=== PATIENT | male | born 1965 | race African-American/Black ===

== ENCOUNTER 2018-03-10 07:18 | Day surgery (SDC) | payer OTHER ==
[2018-03-07 11:03] VITALS: BMI 29.9
[2018-03-10 07:37] VITALS: TEMP 97.8
[2018-03-10] MEDS ORDERED: PROPOFOL 20 ML ONE ×2 (08:29)
[2018-03-10 09:46] VITALS: BP 120/68; PULSE 62
--- NOTE | 2018-03-16 16:12 | PATH ---
Surgical Pathology Report Patient Name: ANTONIO SANCHEZ [facility]. Rec. #: [id number] /Age/Gender: 1965 (Age: 52) / M Account: [id number] Location: [facility] Taken: 03/10/2018 Received: 03/10/2018 Reported: 03/16/2018 Physicians: Ariel Barrera M.D. Specimen(s) Received RECTAL POLYP Clinical History Family history of colon cancer Postoperative diagnosis: Rectal polyp Final Diagnosis RECTAL POLYP, POLYPECTOMY: CONSISTENT WITH INFLAMMATORY POLYP. Electronically Signed Charissa Morrow M.D. Gross Description Received in formalin, labeled "rectal polyp" is a braden, irregular portion of soft tissue measuring 0.3 cm. in greatest dimension. The specimen is submitted in toto in one cassette. 03/11/201803/11/2018
== END 2018-03-10 09:45 | disposition home or self-care (01) ==
LOC: FASU-ENDO 07:18
PROVIDERS: ATTEND Internal Medicine Gastroenterology
PROC: 0DBP8ZX Excision of Rectum, Via Natural or Artificial Opening Endoscopic, Diagnostic (ICD-10-PCS; principal; 2018-03-10 08:32)
DX: Z12.11 Encounter for screening for malignant neoplasm of colon (principal); K62.1 Rectal polyp
CPT/HCPCS: 88305-TC

== ENCOUNTER 2023-03-06 17:45 | Emergency (ER) | payer OTHER ==
[2023-03-06 18:00] VITALS: RESP 16; BMI 33.0
[2023-03-06 20:36] LABS: BASO % 0.9 % (0-2.0); EOS % 2.2 % (0-4.5); HEMATOCRIT 45.1 % (35.4-49); LYMPH % 19.3 % (8-40); MCH 28.9 pg (25.7-33.7); MCHC 33.3 g/dl (32.0-35.9); MEAN CELL VOLUME 86.8 fl (80-96); MEAN PLT VOLUME 8.4 fl (7.5-11.1); MONO % 9.8 % (3.8-10.2); NEUT % 67.8 % (42.8-82.8); PLATELET COUNT 305 10^3/uL (134-434); RBC 5.19 M/mm3 (4.00-5.60); RDW 13.7 % (11.9-15.9); WHITE BLOOD COUNT 7.5 K/mm3 (4.0-10.0)
[2023-03-06 20:57] LABS: POTASSIUM 4.1 mmol/L (3.5-5.1)
[2023-03-06 20:59] LABS: BLOOD UREA NITROGEN 11.7 mg/dL (7-18); CALCIUM 8.7 mg/dL (8.5-10.1)
[2023-03-06 21:02] LABS: CREATININE 1.1 mg/dL (0.55-1.3)
[2023-03-06 21:04] LABS: BILIRUBIN,TOTAL 0.3 mg/dL (0.2-1); TOT PROT 7.2 g/dl (6.4-8.2)
[2023-03-06 23:09] VITALS: BP 120/78; PULSE 78; TEMP 98
== END 2023-03-06 23:10 | disposition home or self-care (01) ==
LOC: JER 17:45
DX: R42 Dizziness and giddiness (principal); R07.9 Chest pain, unspecified; R11.0 Nausea; Z20.822 Contact with and (suspected) exposure to COVID-19
CPT/HCPCS: 0241U-QW; 36415; 71046-TC-FY; 80053; 84484; 85025; 93005; 93010; 99285-25